=== PATIENT | female | born 1985 | race Caucasian/White ===

== ENCOUNTER 2025-03-20 09:52 | Emergency (ER) | payer MEDICAID, SELFPAY ==
--- NOTE | ~2025-03-20 | CT_ITS ---
CT of the Abdomen and Pelvis: Indication: Abdominal pain Technique: 2.5 mm axial scans were obtained through the abdomen and pelvis following intravenous adm inistration of 100 cc of Omnipaque 350. Dose reduction technique was used on this scan by utilizing a utomated exposure control and iterative reconstruction technique. The dose-length product (DLP) was 9 18.42 mGy-cm. Findings: Scans through the lung bases there is a patchy airspace disease in the right lower lobe, c ompatible with pneumonia.. The liver, spleen, pancreas, adrenals and left kidney are within normal limits. Cholecystectomy clips are present. Large partially staghorn type calculus present at the upper pole the right kidney. Ston e measures up to 2.2 cm in length. No evidence of aortic aneurysm. No lymphadenopathy. No bowel obstruction or bowel wall thickening. There is no evidence to suggest acute appendicitis. Images through the pelvis were performed. Urinary bladder unremarkable. No pelvic mass seen. No ascit es. Impression: Right lower lobe pneumonia. Staghorn type calculus at the upper pole of the right kidney. Reviewed, dictated and finalized at location . Impression: Right lower lobe pneumonia. Staghorn type calculus at the upper pole of the right kidney.
--- NOTE | ~2025-03-20 | XR_ITS ---
EXAMINATION: XR chest 2V 03/20/2025 11:24 INDICATION: Deep cough PROCEDURE: 2 view chest COMPARISON: No prior studies for comparison. FINDINGS: The lungs are clear. The cardiomediastinal silhouette is within normal limits. There are no pleural effusions. There is no pneumothorax suspected. IMPRESSION: 1: NO ACUTE CARDIOPULMONARY DISEASE. Reviewed, dictated and finalized at location A.
--- NOTE | ~2025-03-20 | XR_ITS ---
EXAMINATION: XR abdomen/kub 1V DATE: 03/20/2025 12:41 INDICATION: Staghorn calculus TECHNIQUE: A supine view of the abdomen on 2 radiographs was obtained. COMPARISON: CT dated 03/20/2025 FINDINGS: Symmetric bilateral renal nephrograms with excreted contrast in the bilateral renal collecting system s and ureters extending to the contrast filled bladder which is related to the immediately prior cont rast enhanced CT. Excreted contrast is difficult to distinguish from the previous noted large staghor n calculus at the upper pole of the right kidney. Normal bowel gas pattern. No hydronephrosis. Visual ized mid to lower lungs are clear. Heart size is normal. Multiple lumbar dextrocurvature. IMPRESSION: 1. Excreted contrast in bilateral renal collecting systems, ureters and bladder which obscures the ma rgin of the previous noted large staghorn calculus at the upper pole the right kidney. Reviewed, dictated and finalized at location A. IMPRESSION: 1. Excreted contrast in bilateral renal collecting systems, ureters and bladder which obscures the margin of the previous noted large staghorn calculus at the upper pole the right kidney.
[2025-03-20 09:57] VITALS: BP 146/101; PULSE 89; RESP 18; O2SAT 98
[2025-03-20 10:15] LABS: Basophils Percent Auto 0.4 % (0.2-1.2); Eosinophils Absolute Auto 0.2 K/mm3 (0-0.3); Eosinophils Percent Auto 3.2 % (0-4.4); Hematocrit 40.9 % (37.0-47.0); Hemoglobin 13.3 g/dL (12.0-15.0); Immature Granulocyte Absolute 0.01 K/mm3 (0.00-0.031); Immature Granulocyte Percent A 0.2 % (0-0.5); Lymphocytes Absolute Auto 2.05 K/mm3 (0.9-3.2); Lymphocytes Percent Auto 38.7 % (18.3-44.2); Mean Corpuscular HGB Conc 32.5 g/dl (32-36); Mean Corpuscular Hemoglobin 28.7 pg (26-34); Mean Corpuscular Volume 88.1 fl (80-100); Mean Platelet Volume 9.1 fl (7.4-10.4); Monocytes Absolute Auto 0.4 K/mm3 (0.1-0.6); Monocytes Percent Auto 6.6 % (2.6-8.5); Neutrophils Absolute Auto 2.7 K/mm3 (1.3-6.7); Neutrophils Percent Auto 50.9 % (45.5-73.1); Platelet Count Result 254 k/mm3 (150-375); Red Blood Count 4.64 M/mm3 (4.2-5.4); Red Cell Distribution Width 13.6 % (11.5-14.5); White Blood Count 5.3 K/mm3 (4.5-10.0)
[2025-03-20 10:17] LABS: BEDSIDEPREGUCG Negative (Negative)
[2025-03-20 10:19] LABS: Add Urine Microscopic? YES; Appearance Urine Clear (Clear); Bacteria Urine Rare /hpf; Bilirubin Urine Negative (Negative); Blood Urine 1+ (Negative); Color Urine Yellow (Yellow); Glucose Urine UA Negative (Negative); Ketones Urine Negative (Negative); Leukocyte Esterase Ur 2+ LEU/UL (Negative); Nitrate Urine Negative (Negative); Non Pathogenic Casts 0-2; Protein Urine Negative (Negative); Specific Grav Ur 1.018 (1.001-1.035); Squamous Epithelial Cell Urine None Seen /hpf (Few); Urobilinogen Urine 0.2 mg/dL (<2.0); WBC Urine >100 /hpf (0-3)
[2025-03-20 10:33] LABS: Alanine Aminotransferase 40 U/L (6-35); Albumin Level 4.6 g/dL (3.5-5.1); Anion Gap 11 mmol/L (4-12); Bilirubin,Total 0.7 mg/dL (0.2-1.3); Blood Urea Nitrogen 16 mg/dL (7-17); Calcium 9.2 mg/dL (8.4-10.2); Carbon Dioxide 23 mmol/L (22-30); Chloride 107 mmol/L (98-107); Estimated CRCL calculation 94 ml/min; Estimated Glomerular Filt Rate > 60; Glucose 112 mg/dL (65-110); Lipase 80 U/L (23-300); Sodium 141 mmol/L (137-145)
[2025-03-20 10:39] LABS: Alkaline Phosphatase 105 U/L (38-126); Aspartate Amino Transferase 32 U/L (14-36); Potassium 4.4 mmol/L (3.4-5.0)
--- NOTE | 2025-03-20 10:52 | ED.ABDPAIN ---
HPI - Abdominal Pain General Chief Complaint: Abdominal Pain Stated Complaint: R. flank pain and R. abd. pain Time Seen by Provider: 03/20/25 09:54 History of Present Illness HPI narrative: Patient is a 39-year-old female who presents to the ER with a ?deep cough, right flank pain, cold sweats, and right upper quadrant abdominal pain. She reports she 1st noted her cough approximately 1 week ago. Yesterday she started experiencing upper abdominal quadrant pain. Patient endorses a history of chronic kidney infections, hypertension, cholecystectomy, heart murmur, and palpitations. She reports she does not currently take medication to treat any of her chronic conditions. Related Data Allergies Allergy/AdvReac Type Severity Reaction Status Date / Time carbamazepine (From Tegretol) Allergy Migraine Verified 03/20/25 10:04 tramadol Allergy Hives Verified 03/20/25 10:04 Review of Systems Review of Systems: All systems reviewed & are unremarkable except as noted in HPI and below Exam Narrative: GENERAL: Well appearing, well-nourished, non-toxic, in no acute distress. HEAD: Normocephalic, atraumatic. NECK: Supple. No adenopathy, no masses. RESPIRATORY: Airway patent, respirations nonlabored. Clear to auscultation bilaterally, no rales, rhonchi, wheezing. CARDIOVASCULAR: Regular rate and rhythm without murmurs, rubs, or gallops. Peripheral pulses 2+ and equal bilaterally. No CVA tenderness. ABDOMINAL: Soft, nontender, nondistended, no hepatosplenomegaly. Normoactive BS. MUSCULOSKELETAL: Moves all extremities. Strength/ROM intact without gross deformities. SKIN: Warm, dry, normal color. No rashes. NEURO: A&O X3. Speech clear. Cranial nerves II-XII intact. No ataxic movements. PSYCHIATRIC: Appropriate mood and affect. Normal interaction. Course Vital Signs Vital signs: Vital Signs Pulse Rate 89 03/20/25 09:57 Respiratory Rate 18 03/20/25 09:57 Blood Pressure 146/101 H 03/20/25 09:57 Pulse Oximetry 98 03/20/25 09:57 Oxygen Delivery Room Air 03/20/25 09:57 Pulse Rate 89 03/20/25 09:57 Respiratory Rate 18 03/20/25 09:57 Blood Pressure 146/101 H 03/20/25 09:57 Pulse Oximetry 98 03/20/25 09:57 Oxygen Delivery Room Air 03/20/25 09:57 MDM - Abdominal Pain MDM Narrative Medical decision making narrative: Patient is a 39-year-old female who presents to the ER with a ?deep cough, right flank pain, cold sweats, and right upper quadrant abdominal pain. She reports she 1st noted her cough approximately 1 week ago. Yesterday she started experiencing upper abdominal quadrant pain. Patient endorses a history of chronic kidney infections, hypertension, cholecystectomy, heart murmur, and palpitations. She reports she does not currently take medication to treat any of her chronic conditions. Labs Ordered: CBC, CMP, UA, lipase Imaging Ordered: CT abdomen pelvis, chest x-ray Medications Ordered: 1 L normal saline IV bolus, morphine 4 mg IV, Toradol 30 mg IV, [place] PO, Augmentin PO, Azithromycin PO Results: Patient's CT scan indicates Right lower lobe pneumonia. Staghorn type calculus at the upper pole of the right kidney. Patient's urinalysis indicates patient has urinary tract infection. Her CMP and CBC were unremarkable for abnormalities. Diagnosis: urinary tract infection, pneumonia, staghorn calculus Consults: 1230- Spoke with urologist who advised pt follow-up with them next week for further evaluation of her staghorn calculus. He also requested a KUB be taken today. Patient Education/Shared MDM: Results of blood work and imaging shared with patient. She endorses improvement following medication administration. Patient strongly advised to maintain hydration status upon discharge and follow-up with her PCP as soon as possible. She will be discharged home with a prescription for [place], Augmentin, and Azithromycin. Strict return precautions provided. Patient verbalized understanding and is in agreement with plan. Vital signs stable at time of discharge. All questions answered. Differential Diagnosis Differential diagnosis: Likely calculus of kidney, gastroenteritis and other (Appendicitis, pneumonia) Lab Data Attestation: I reviewed the patient's lab results. 03/20/25 10:09 03/20/25 10:09 Labs: Lab Results 03/20/25 03/20/25 Range/Units 10:09 10:13 WBC 5.3 (4.5-10.0) K/mm3 RBC 4.64 (4.2-5.4) M/mm3 Hgb 13.3 (12.0-15.0) g/dL Hct 40.9 (37.0-47.0) % MCV 88.1 (80-100) fl MCH 28.7 (26-34) pg MCHC 32.5 (32-36) g/dl RDW 13.6 (11.5-14.5) % Plt Count 254 (150-375) k/mm3 MPV 9.1 (7.4-10.4) fl Immature Gran % (Auto) 0.2 (0-0.5) % Neut % (Auto) 50.9 (45.5-73.1) % Lymph % (Auto) 38.7 (18.3-44.2) % Randolph % (Auto) 6.6 (2.6-8.5) % Eos % (Auto) 3.2 (0-4.4) % Baso % (Auto) 0.4 (0.2-1.2) % Lymph # (Auto) 2.05 (0.9-3.2) K/mm3 Randolph # (Auto) 0.4 (0.1-0.6) K/mm3 Eos # (Auto) 0.2 (0-0.3) K/mm3 Baso # (Auto) 0.0 (0.0-0.1) K/mm3 Abs Immat Gran (auto) 0.01 (0.00-0.031) K/mm3 Absolute Neuts (auto) 2.7 (1.3-6.7) K/mm3 Absolute Nucleated RBC 0.000 (0.0-0.012) K/mm3 Nucleated RBC % 0.0 (0.0-0.2) % Sodium 141 (137-145) mmol/L Potassium 4.4 (3.4-5.0) mmol/L Chloride 107 (98-107) mmol/L Carbon Dioxide 23 (22-30) mmol/L Anion Gap 11 (4-12) mmol/L BUN 16 (7-17) mg/dL Creatinine 0.71 (0.7-1.0) mg/dL Estim Creat Clear Calc 94 ml/min Estimated GFR > 60 (59 - ) Glucose 112 H (65-110) mg/dL Calcium 9.2 (8.4-10.2) mg/dL Total Bilirubin 0.7 (0.2-1.3) mg/dL AST 32 (14-36) U/L ALT 40 H (6-35) U/L Alkaline Phosphatase 105 (38-126) U/L Total Protein 8.0 (6.3-8.2) g/dL Albumin 4.6 (3.5-5.1) g/dL Lipase 80 (23-300) U/L Urine Color Yellow (Yellow) Urine Appearance Clear (Clear) Urine pH 6.0 (5.0-9.0) Ur Specific [place] 1.018 (1.001-1.035) Urine Protein Negative (Negative) mg/dL Urine Glucose (UA) Negative (Negative) mg/dL Urine Ketones Negative (Negative) mg/dL Ur Blood (Man) 1+ H (Negative) Urine Nitrate Negative (Negative) Urine Bilirubin Negative (Negative) Urine Urobilinogen 0.2 (<2.0) mg/dL Leukocyte Esterase Rfl 2+ H (Negative) CRISTIANO/UL Urine RBC 11-20 H (0-2) /hpf Urine WBC >100 H (0-3) /hpf Ur Squamous Epith Cells None seen (Few) /hpf Urine Bacteria Rare /hpf Urine Casts 0-2 POC Urine HCG, Qual Negative (Negative) Imaging Data Attestation: I personally reviewed and interpreted this imaging study as follows: Radiologist's impression: ITS Impressions Chest X-Ray 03/20/25 11:49 IMPRESSION: 1: NO ACUTE CARDIOPULMONARY DISEASE. Abdomen/Pelvis CT 03/20/25 11:50 Impression: Right lower lobe pneumonia. Staghorn type calculus at the upper pole of the right kidney. Abdomen X-Ray 03/20/25 12:55 IMPRESSION: 1. Excreted contrast in bilateral renal collecting systems, ureters and bladder which obscures the margin of the previous noted large staghorn calculus at the upper pole the right kidney. Discharge Plan Discharge Clinical Impression: Urinary tract infection, Pneumonia, Acute flank pain, Staghorn calculus Patient Disposition: Home Condition: Stable Instructions: Antibiotic Form, Urinary Tract Infection in Women (ED), Community Acquired Pneumonia (ED) Additional Instructions: Please return to the ER with any worsening symptoms. Follow-up with urology next week, as discussed. Please follow-up with a PCP as soon as possible. Take all medications as prescribed, including regularly scheduled medications. Complete your full dose of antibiotics. Patient Language: Gambian Prescriptions: New azithromycin 250 mg tablet See Rx Instructions .ROUTE .COMPLEX Qty: 6 0RF Rx Instructions: For 250 mg dose pack: take 500 mg today (day 1), then 250 mg for 4 days (days 2-5) amoxicillin-pot clavulanate 875-125 mg tablet 1 tablet PO Q12H Qty: 20 0RF hydrocodone-acetaminophen 5-325 mg tablet 1 tablet PO Q8H PRN (Reason: pain) Qty: 12 0RF Follow-up/Referrals: UNKNOWN,DOCTOR [Primary Care Provider] - Stand Alone Forms: Work/School Release IP Time of Disposition: 13:12
[2025-03-20] MEDS: SODIUM CHLORIDE 0.9% IV 1,000 ML 999 ML IV CONT (11:25)
[2025-03-20] MEDS: ONDANSETRON INJ 4 MG/2 ML VIAL IV PUSH (11:26)
[2025-03-20] MEDS: MORPHINE SULFATE (*CRX) 4 MG/ML INJ IV PUSH (11:27)
[2025-03-20] MEDS: KETOROLAC 30 MG/ML VIAL (*BKC) IV PUSH (11:28)
[2025-03-20] MEDS: HYDROcodone/acetaminophen (*CRX) 5-325 MG TABLET 1 TAB PO (13:20)
[2025-03-20] MEDS: AMOXICILLIN/CLAVULANATE K 875-125 MG TAB 1 TABLET PO (13:29)
[2025-03-20] MEDS: AZITHROMYCIN 250 MG TABLET 500 MG PO (13:29)
== END 2025-03-20 13:38 | disposition home or self-care (01) ==
PROVIDERS: Emergency Provider Registered Nurse
DX: N39.0 Urinary tract infection, site not specified (principal); J18.9 Pneumonia, unspecified organism; N20.0 Calculus of kidney
CPT/HCPCS: 36415; 71046; 74018; 74177; 80053; 81001; 81025; 83690; 85025; 87086; 87186; 96361; 96374; 96375; 99284; A9270; J1885; J2270; J2405; J7030; Q9967